=== PATIENT | female | born 1970 | race Caucasian/White ===

== ENCOUNTER 2018-05-19 08:29 | Emergency (ER) | payer OTHER ==
[2018-05-19] MEDS ORDERED: ONDANSETRON 4 MG/2 ML VIAL IVP ONE (08:57)
[2018-05-19] MEDS ORDERED: DIAZEPAM 10 MG/2 ML SYR IVP ONE ×2 (08:57→09:29)
[2018-05-19] MEDS ORDERED: NS 1,000 ML IV ONE (08:58)
--- NOTE | 2018-05-19 09:03 | EDPHY ---
H & P Stated Complaint: dizziness, fell last night Time Seen by Provider: 05/19/18 08:46 HPI/ROS: CHIEF COMPLAINT: Vertigo HISTORY OF PRESENT ILLNESS: Patient is a 47-year-old female who comes to the emergency department complaining of vertigo since last night. She got up around 3am to smoke. When she stood up from her smoking chair she felt vertiginous. She fell to the ground and felt nauseous. She was able to get back to bed but felt like she heard a "whooshing" sound in her right ear. This morning when she got out of bed she still felt like the wall was moving. No fainting or lightheadedness. No chest pain or palpitations. No shortness of breath. She reports having a viral type upper respiratory infection 3 weeks ago. The vertigo has now essentially stopped however she continues to feel slightly nauseous and scared. Severity: Moderate Modifying factors: [] REVIEW OF SYSTEMS: Constitutional: denies: chills, fever, recent illness, recent injury EENTM: denies: blurred vision, double vision, nose congestion Respiratory: denies: cough, shortness of breath Cardiac: denies: chest pain, irregular heart rate, lightheadedness, palpitations Gastrointestinal/Abdominal: denies: abdominal pain, diarrhea, nausea, vomiting, blood streaked stools Genitourinary: denies: dysuria, frequency, hematuria, pain Musculoskeletal: denies: joint pain, muscle pain Skin: denies: lesions, rash, jaundice, bruising Neurological: denies: headache, numbness, paresthesia, tingling, dizziness, weakness Hematologic/Lymphatic: denies: blood clots, easy bleeding, easy bruising Immunologic/allergic: denies: HIV/AIDS, transplant 10 systems reviewed and negative except as noted EXAM: GENERAL: Well-appearing, well-nourished and in no acute distress. HEAD: Atraumatic, normocephalic. EYES: Pupils equal round and reactive to light, extraocular movements intact, sclera anicteric, conjunctiva are normal. ENT: TMs normal, nares patent, oropharynx clear without exudates. Moist mucous membranes. No nystagmus elicited with Hallpike maneuver. No visible nystagmus in any direction. Normal test of skew. No saccades with head impulse testing however she is not currently vertiginous. NECK: Normal range of motion, supple without lymphadenopathy or JVD. LUNGS: Breath sounds clear to auscultation bilaterally and equal. No wheezes rales or rhonchi. HEART: Regular rate and rhythm without murmurs, rubs or gallops. ABDOMEN: Soft, nontender, normoactive bowel sounds. No guarding, no rebound. No masses appreciated. BACK: No CVA tenderness, no spinal tenderness, step-offs or deformities EXTREMITIES: Normal range of motion, no pitting or edema. No clubbing or cyanosis. NEUROLOGICAL: Cranial nerves II through XII grossly intact. Normal speech, slightly unsteady gait. Able to walk toe to toe with concentration. 5/5 strength, normal movement in all extremities, normal sensation, normal reflexes , NIH stroke score 0. PSYCH: Normal mood, normal affect. SKIN: Warm, dry, normal turgor, no visible rashes or lesions. Source: Patient Exam Limitations: No limitations - Personal History LMP (Females 10-55): 15-21 Days Ago Current Tetanus Diphtheria and Acellular Pertussis (TDAP): Yes Tetanus Vaccine Date: 2008 - Medical/Surgical History Hx Asthma: Yes Hx Chronic Respiratory Disease: No Hx Diabetes: Yes Hx Cardiac Disease: No Hx Renal Disease: No Hx Cirrhosis: No Hx Alcoholism: No Hx HIV/AIDS: No Hx Splenectomy or Spleen Trauma: No Other PMH: REFLUX, IBS, ORTHO SURG, HAND ORTHO, JAW SURG, HSV1, recent strep infection in finger, tonsilectomy,prediabetic - Family History Significant Family History: No pertinent family hx - Social History Smoking Status: Heavy smoker Alcohol Use: Sober Drug Use: None Constitutional: Initial Vital Signs Temperature (C) 36.6 C 05/19/18 08:36 Heart Rate 79 05/19/18 08:36 Respiratory Rate 16 05/19/18 08:36 Blood Pressure 160/89 H 05/19/18 08:36 O2 Sat (%) 98 05/19/18 08:36 O2 Delivery Mode Room Air Allergies/Adverse Reactions: amoxicillin trihydrate [From Augmentin] Allergy (Intermediate, Verified 08:34) Edema of Extremities potassium clavula *RETIRED-02/18/12 [From Augmentin] Allergy (Intermediate, Verified 05/19/18 08:34) Edema of Extremities Sulfa (Sulfonamide Antibiotics) Allergy (Intermediate, Verified 05/19/18 08:34) generalized swelling Tetracyclines [Tetracycline Analogues] Allergy (Mild, Verified 05/19/18 08:34) Vomiting citric acid [Citric Acid] Allergy (Unknown, Verified 05/19/18 08:34) metoclopramide HCl [From Reglan] Allergy (Verified 05/19/18 08:34) Home Medications: Medication Instructions Recorded Escitalopram Oxalate [Lexapro] 20 mg PO HS 04/30/09 Lansoprazole [Prevacid] 30 mg PO DAILY 04/30/09 diphenhydrAMINE [Benadryl 25 MG 25 mg PO HS PRN 09/16/13 (*)] buPROPion [Wellbutrin 75mg (*)] 75 mg PO BID 04/23/16 metFORMIN HCL [Metformin HCl ER] 500 mg PO BID 04/23/16 Diazepam [Valium 5 MG (*)] 5 mg PO TID PRN #15 tab 05/19/18 Meclizine HCl [Meclizine HCl 25 mg 25 mg PO BID #20 tab 05/19/18 (RX,OTC)] Medical Decision Making - Diagnostics EKG Interpretation: An EKG obtained and was read and documented in trace view. Please see trace view for full reading and report. Sinus rhythm, no acute ischemic changes Imaging Results: Imaging Impressions Head CT 05/19/18 09:11 Impression: 1. No acute intracranial findings. 2. Mucous retention cysts/polyps and mucous membrane thickening in the paranasal sinuses. Head CTA 05/19/18 09:11 Impression: 1. Normal CT angiogram of the head and neck. 2. Additional findings as above. Stenoses are calculated using [place] Symptomatic Carotid Endarterectomy Trial (NASCET) criteria. Findings discussed with Kashif Joaquin 05/19/2018 at 11:06. a.m. Neck CTA 05/19/18 09:11 Impression: 1. Normal CT angiogram of the head and neck. 2. Additional findings as above. Stenoses are calculated using [place] Symptomatic Carotid Endarterectomy Trial (NASCET) criteria. Findings discussed with Kashif Joaquin 05/19/2018 at 11:06. a.m. Imaging: Discussed imaging studies w/ scallop cutter Radiologist ED Course/Re-evaluation: Patient's symptoms have improved. I suspect that she has a peripheral cause of vertigo because of its intermittent nature however because she had a whooshing sensation in her right ear associated with the episode and will obtain a CT angio. 11:15 a.m. the patient is feeling much better. She likes the Valium and is requesting a prescription. She states that she has a lot of anxiety in usually has to take Xanax to calm herself down. She continues to have no neurologic deficits that are observable. We discussed her CT lab work and EKG which are all very reassuring. I will have her follow up with ENT. We discussed indications for returning. Differential Diagnosis: Partial list of the Differential diagnosis considered include but were not limited to; benign positional vertigo, vestibular neuritis, labyrinthitis and although unlikely based on the history and physical exam, I also considered CVA , dissection, ischemia, infection. I discussed these differential diagnoses and the plan with the patient as well as the usual and expected course. The patient understands that the diagnosis is provisional and that in medicine we are not always correct and that further workup is often warranted. Usual and customary warnings were given. All of the patient's questions were answered. The patient was instructed to return to the emergency department should the symptoms at all worsen or return, otherwise to followup with the physician as we discussed. - Data Points Laboratory Results: 05/19/18 09:27 POC Sodium 140 mEq/L mEq/L (135-145) POC Potassium 3.0 mEq/L L mEq/L (3.3-5.0) POC Chloride 103.0 mEq/L mEq/L (97-110) POC Total CO2 24 mEq/L mEq/L (22-31) POC BUN 12 mg/dL mg/dL (7-23) POC Creatinine 0.7 mg/dL mg/dL (0.6-1.0) POC Glucose 103 mg/dL H mg/dL (70-100) POC Calcium 9.3 mg/dL mg/dL (8.5-10.4) Medications Given: Discontinued Medications Diazepam (Valium) 5 mg IVP EDNOW ONE Stop: 05/19/18 08:58 Last Admin: 05/19/18 09:31 Dose: 5 mg Diazepam (Valium) 5 mg IVP EDNOW ONE Stop: 05/19/18 09:30 Last Admin: 05/19/18 09:33 Dose: Not Given Sodium Chloride (Ns) 1,000 mls @ 0 mls/hr IV EDNOW ONE; Wide Open PRN Reason: Protocol Stop: 05/19/18 08:59 Last Admin: 05/19/18 09:40 Dose: 1,000 mls Ondansetron HCl (Zofran) 4 mg IVP EDNOW ONE Stop: 05/19/18 08:58 Last Admin: 05/19/18 09:28 Dose: 4 mg Point of Care Test Results: CBC CBC Collection Date 05/19/18 CBC Collection Time 09:20 WBC 7.1 RBC 4.44 HGB 13.2 HCT 38.6 PLT 228 Neut # 4.5 Neut 63.4 LYMPH # 2.3 LYMPH 32.4 Other WBC # 0.3 Other WBC 4.2 MCV 86.9 Chemistry 05/19/18 09:27 POC Sodium 140 mEq/L mEq/L (135-145) POC Potassium 3.0 mEq/L L mEq/L (3.3-5.0) POC Chloride 103.0 mEq/L mEq/L (97-110) POC Total CO2 24 mEq/L mEq/L (22-31) POC BUN 12 mg/dL mg/dL (7-23) POC Creatinine 0.7 mg/dL mg/dL (0.6-1.0) POC Glucose 103 mg/dL H mg/dL (70-100) POC Calcium 9.3 mg/dL mg/dL (8.5-10.4) Urine Collection Date 05/19/18 Collection Time 10:15 HCG Results Negative Departure - Departure Disposition: Home, Routine, Self-Care Clinical Impression: Anxiety Peripheral vertigo Qualifiers: Laterality: unspecified laterality Qualified Code(s): H81.399 - Other peripheral vertigo, unspecified ear Condition: Fair Instructions: Benign Paroxysmal Positional Vertigo (ED) Referrals: NONE *PRIMARY CARE P,. [Primary Care Provider] - As per Instructions Milind Bonilla MD [Medical Doctor] - 3-4 days, if not improved Prescriptions: Diazepam [Valium 5 MG (*)] 5 mg PO TID PRN #15 tab PRN Reason: Spasms Meclizine HCl [Meclizine HCl 25 mg (RX,OTC)] 25 mg PO BID #20 tab
[2018-05-19] MEDS ORDERED: IOPAMIDOL (ISOVUE-370) 150 ML BTL IV ONE (09:15)
--- NOTE | 2018-05-19 09:28 | CPEKG ---
Test Reason : OPEN Blood Pressure : / mmHG Vent. Rate : 061 BPM Atrial Rate : 060 BPM P-R Int : 169 ms QRS Dur : 076 ms QT Int : 434 ms P-R-T Axes : -05 040 021 degrees QTc Int : 438 ms Sinus rhythm Confirmed by Kashif Joaquin ([id number]) on 05/19/2018 9:28:04 AM Referred By: Confirmed By:Kashif Joaquin
[2018-05-19 11:36] VITALS: BP 168/96
[2018-05-19] MEDS ORDERED: DIAZEPAM 5 MG/ML 1 ML SYR ONE (17:31)
== END 2018-05-19 11:34 | disposition home or self-care (01) ==
LOC: CED 08:29
DX: H81.399 Other peripheral vertigo, unspecified ear (principal); F41.9 Anxiety disorder, unspecified; E86.9 Volume depletion, unspecified; R73.03 Prediabetes; F17.200 Nicotine dependence, unspecified, uncomplicated
CPT/HCPCS: 70450-PO; 70496-PO; 70498-PO; 80048-PO; 96374; J2405; J3360; Q9967

== ENCOUNTER 2018-08-07 13:01 | Emergency (ER) | payer OTHER ==
[2018-08-07 13:18] VITALS: BP 144/104
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
== END 2018-08-07 13:55 | disposition home or self-care (01) ==
LOC: CED 13:01
DX: S16.1XXA Strain of muscle, fascia and tendon at neck level, initial encounter (principal); V49.49XA Driver injured in collision with other motor vehicles in traffic accident, initial encounter; Y92.410 Unspecified street and highway as the place of occurrence of the external cause; R73.03 Prediabetes
CPT/HCPCS: 99283-ER